=== PATIENT | male | born 1990 | race African-American/Black ===

== ENCOUNTER 2021-05-17 11:58 | Emergency (ER) | payer MEDICAID ==
[~2021-05-17] VITALS: Ht 188 cm; Wt 120.0 kg
[2021-05-17 12:28] VITALS: BP 138/85
== END 2021-05-17 13:08 | disposition home or self-care (01) ==
LOC: ER 11:58
DX: Z48.02 Encounter for removal of sutures (principal)
CPT/HCPCS: 99281

== ENCOUNTER 2022-01-22 20:30 | Emergency (ER) | payer MEDICAID ==
[~2022-01-22] VITALS: Ht 188 cm; Wt 120.0 kg
[2022-01-22] MEDS ORDERED: ACETAMINOPHEN 325MG TABLET PO STA (20:56)
[2022-01-22] MEDS ORDERED: TETANUS, DIPHTHERIA, PERTUSSIS VAC/PF 0.5ML (>10YR OLD) IM ONE (21:00)
[2022-01-22] MEDS ORDERED: AMOX-424 MT (22:46)
[2022-01-22] MEDS ORDERED: KETOROLAC 60MG/2ML VIAL IM ONE (23:00)
[2022-01-22 23:14] VITALS: BP 131/88
== END 2022-01-22 23:15 ==
LOC: ER 20:30
DX: S01.01XA Laceration without foreign body of scalp, initial encounter (principal); M79.642 Pain in left hand; S11.85XA Open bite of other specified part of neck, initial encounter; M79.631 Pain in right forearm; R03.0 Elevated blood-pressure reading, without diagnosis of hypertension; Y00.XXXA Assault by blunt object, initial encounter; Y04.1XXA Assault by human bite, initial encounter; Y93.89 Activity, other specified; Y92.89 Other specified places as the place of occurrence of the external cause
CPT/HCPCS: 12002; 70450; 73090; 73130; 96372; 99284; J1885

== ENCOUNTER 2022-11-07 15:59 | Emergency (ER) | payer MEDICAID ==
[~2022-11-07] VITALS: Ht 188 cm; Wt 136.0 kg
[~2022-11-07 15:59] MED LIST: AMOX-424 MT
[2022-11-07 16:35] VITALS: BP 158/72
[2022-11-07] MEDS ORDERED: POLY10DR LEFTEYE (20:05)
== END 2022-11-07 20:19 | disposition home or self-care (01) ==
LOC: ER 15:59
DX: H10.023 Other mucopurulent conjunctivitis, bilateral (principal); F12.10 Cannabis abuse, uncomplicated
CPT/HCPCS: 99281

== ENCOUNTER 2022-12-28 14:58 | Emergency (ER) | payer MEDICAID ==
[~2022-12-28] VITALS: Ht 188 cm; Wt 109.0 kg
[~2022-12-28 14:58] MED LIST changes: +POLY10DR LEFTEYE
[2022-12-28 15:00] VITALS: BP 169/95
[2022-12-28] MEDS ORDERED: FLUORESCEIN SODIUM 1MG/STRIP BOTHEYE ONE (16:00)
[2022-12-28] MEDS ORDERED: BETA50CR5 TP (17:02)
[2022-12-28] MEDS ORDERED: ERYT1OIN6 EACHEYE (17:02)
== END 2022-12-28 17:58 | disposition home or self-care (01) ==
LOC: ER 14:58
DX: H10.9 Unspecified conjunctivitis (principal); L30.9 Dermatitis, unspecified; F12.10 Cannabis abuse, uncomplicated; Z79.899 Other long term (current) drug therapy
CPT/HCPCS: 99283